=== PATIENT | male | born 1975 | race Caucasian/White ===

== ENCOUNTER 2021-04-26 10:30 | Day surgery (SDC) | payer BC, SELFPAY ==
[2021-04-26] VITALS (8 sets, daily range): BP systolic 125–178; BP diastolic 91–122; PULSE 90–114; RESP 16–18; TEMP 36.3–36.9; O2SAT 94–98; BMI 26.4; BMI 26.0
--- NOTE | 2021-04-26 10:42 | HMH.EDGENADL ---
ED Disposition Clinical Impression: Esophageal obstruction due to food impaction Disposition: Still a Patient Condition on Discharge: Fair Referrals: Chance Álvarez MD [Primary Care Provider] - - Critical Care Critical Care Time: No Attestation: On 04/26/21, the high probability of a clinically significant, sudden or life threatening deterioration of the following system(s) required my full and direct attention, intervention and personal management. The time I documented below is in addition to time spent performing reported procedures but includes the following listed in this critical care notation. Medical Decision Making - Milo Inquiry Pt receiving controlled substance: No Vital Signs: 04/26/21 10:31 04/26/21 11:12 04/26/21 11:22 Temperature 98.5 F 97.4 F L 98.2 F Temperature Source Oral Temporal Artery Scan Oral Pulse Rate 100 H Pulse Rate [Radial] 114 H 100 H Respiratory Rate 16 18 16 Blood Pressure 177/98 H Blood Pressure [Right Arm] 178/122 H 165/101 H Blood Pressure Mean [Right Arm] 140 122 Blood Pressure Source Automatic Cuff Blood Pressure Source [Right Arm] Automatic Cuff Blood Pressure Position Sitting Blood Pressure Position [Right Arm] Sitting Sitting 02 Sat by Pulse Oximetry 98 98 Oxygen Delivery Method Room Air Room Air Room Air Orders (Tests/Meds): ED MEDICATIONS Discontinued Medications Generic Name Dose Route Start Last Admin Trade Name Freq PRN Reason Stop Dose Admin Sodium Chloride 1,000 ml 04/26/21 10:52 Sodium Chloride 0.9% 1000ml Bag IV 04/26/21 10:53 BOLUS ONE ORDERS Category Date Time Status Consult to Surgeon On-Call [Consult to On-Call Gen'l Cons 04/26/21 10:49 Ordered Surgeon] [CONS] Routine BMP [Basic Metabolic Panel] Stat Lab 04/26/21 10:49 Ordered Complete Blood Count Auto Diff Stat Lab 04/26/21 10:49 Ordered Rapid PCR Covid and Flu A/B Stat Lab 04/26/21 10:53 Received - Physician Consults Physician Consulted: Shvia Time: 10:53 Reason -: Surgical Eval/Care Comment/Response: States that radiologic technology instructor is here in specially clinic today. He is going to call their to see if radiologic technology instructor will do the endoscopy and he will call back. Will be taken for EGD by Dr. Shannon. General Adult HPI - General Stated complaint: food stuck in throat Time Seen by Provider: 04/26/21 10:42 - History of Present Illness HPI narrative: Complains of a lodged food bolus in his esophagus. States that he was eating steak 2 days ago when he coughed or sneezed and can tell immediately that it got stuck. He has tried meat tenderizer, carbonated beverages, broth, water, all without relief. He has not tried to eat solid foods since that happened, only trying liquids. All liquids come back up as does saliva. He says this is happened several times over the past 10 years. He says he can normally relieve it with me tenderizer, but had to have EGD 5 years ago to remove a bolus. He says he was supposed to follow-up for esophageal dilatation but did not follow-up. - Related Data Home Medications Medication Instructions Recorded Confirmed lisinopriL [Lisinopril] 10 mg PO DAILY 04/26/21 04/26/21 Allergies Allergy/AdvReac Type Severity Reaction Status Date / Time NKDA Allergy Unknown Uncoded 04/02/17 14:29 [facility] History - Hepatitis A Screen Attestation statement:: This patient has been screened for Hepatitis A risk factors. I have reviewed the patient's past medical history: Yes ROS Obtained: Yes Systems reviewed as appropriate & no additional complaints - Constitutional Constitutional: Denies fever(s) - Gastrointestinal Gastrointestingal: Reports: as per HPI, dysphagia Physical Exam - General General appearance: alert, in no apparent distress - Head Head exam: atraumatic, normocephalic - Eye Eye exam: Present: normal appearance, EOMI - ENT ENT exam: Present: mucous membranes moist -
--- NOTE | 2021-04-26 11:06 | PC.NURSE ---
Pt is going to have a scope due to food bolus for [address] Shannon will be performing the procedure. Marianna called down and advised he would be performing the procedure. Jessica Darby went into the room to start the paperwork and get the patient ready for procedure when they arrived at bedside and went ahead and took the patient on up to pre-op.
--- NOTE | 2021-04-26 11:19 | HMH.GSHP ---
HPI HPI: Patient is a 45-year-old male who had is a prior history of reflux and esophageal foreign body/food impaction. He required upper endoscopy on 05/12/[address] Owusu. He states that he was in his usual state of health until 2 days ago on 04/24/2021 at which time he was eating steak. Subsequently he has been unable to swallow his secretions. He has tried multiple remedies at home without success. He has tried meat tenderizer, carbonated beverages, broth, water, all without relief. He has not tried to eat solid foods since that happened, only trying liquids. All liquids come back up as does saliva. He says this is happened several times over the past 10 years. He says he can normally relieve it with me tenderizer. He says he was supposed to follow-up for esophageal dilatation but did not follow-up. [facility] History I have reviewed the patient's past medical history: Yes Medical History: Reports:: Hypertension Denies:: Internal Pacemaker, Seizures *Have you ever received a pneumonia vaccine?: No *Have you received a flu vaccine this season?: No Other Surgeries: No: Pacemaker - *Social History Smoking Status: Smoker, status unknown Alcohol Intake: never *Occupational Status:: employed *Travel in the last 8 weeks: None Family Hx:: Non-contributory Review of Systems - Review of Systems Review of systems:: pertinent systems reviewed and negative unless documented below Meds Home Medications Medication Instructions Recorded Confirmed Type lisinopriL [Lisinopril] 10 mg PO DAILY 04/26/21 04/26/21 History Allergies Allergy/AdvReac Type Severity Reaction Status Date / Time NKDA Allergy Unknown Uncoded 04/02/17 14:29 Exam Vital signs and Labs for Last 24 Hours: Temp Pulse Resp BP Pulse Ox 97.4 F L 100 H 18 165/101 H 98 04/26/21 11:12 04/26/21 11:12 04/26/21 11:12 04/26/21 11:12 04/26/21 11:12 I & O for Last 24 hours: Intake & Output 04/23/21 04/24/21 04/25/21 04/26/21 11:59 11:59 11:59 11:59 Weight 192 lb - Constitutional no acute distress - *Routine HEENT Exam Head: Present: normocephalic Eye: Present: EOMI, PERRL ENT: Present: mucous membranes moist - *Routine Neck Exam Present: supple. Absent: lymphadenopathy - *Routine Respiratory Exam Present: CTA bilaterally - *Routine Cardiovascular Exam Present: RRR - *Routine Abdominal Exam Present: soft, normoactive bowel sounds. Absent: tenderness - *Routine Rectal Exam Rectal:: deferred - *Routine Genitalia Exam Genitalia:: deferred - *Routine Extremities Exam Absent: cyanosis, clubbing, edema - *Routine Skin Exam Present: warm. Absent: rash - *Routine Neurological Exam Present: alert, oriented X3 Assessment and Plan - Assessment and plan all Dx Assessment and Plan for all problems:: Plan for urgent endoscopy for apparent foreign body/food impaction
[2021-04-26 11:23] LABS: Coronavirus 19, PCR Not Detected (NotDetected); Influenza A, PCR Not Detected (NotDetected); Influenza B, PCR Not Detected (NotDetected)
--- NOTE | 2021-04-26 11:52 | P.PCN_ITS ---
- Procedure: Date: 04/26/21 Patient Date of :: 1975 Procedure Performed:: Esophagogastroduodenoscopy with biopsies Indications:: Patient is a 45-year-old male who had presented to the emergency department with symptoms of esophageal obstruction. He has a prior history of reflux and esophageal foreign body/food impaction. He required upper endoscopy on 05/12/[address] Owusu. He states that he was in his usual state of health until 2 days ago on 04/24/2021 at which time he was eating steak. Subsequently he has been unable to swallow his secretions. He has tried multiple remedies at home without success. He has tried meat tenderizer, carbonated beverages, broth, water, all without relief. He has not tried to eat solid foods since that happened, only trying liquids. All liquids come back up as does saliva. He says this is happened several times over the past 10 years. He says he can normally relieve it with me tenderizer. He says he was supposed to follow-up for esophageal dilatation but did not follow-up. Due to terms of esophageal obstruction secondary to food impaction surgical consultation was obtained. Plan was made for EGD. Performing Provider:: Hua Shannon MD Referring Provider:: Chance Álvarez MD Sedation:: MAC sedation Procedure:: Patient was taken to endoscopy. He was positioned in lateral decubitus position. Adequate intravenous sedation was achieved with anesthesia titration of propofol. Olympus endoscope was inserted via the oropharynx. There was some saliva within the distal esophagus which was suctioned free. There was evidence of some distal erosive esophagitis. There was no evidence of any food impaction at the gastroesophageal junction at this time but there was evidence of edema and some minor mucosal oozing secondary to likely recent esophageal obstruction food impaction. Gastroesophageal junction was encountered at approximately 40 cm from the incisors. Stomach was cannulated and insufflated. Retroflexion revealed no evidence of any appreciable hiatal hernia. Stomach appeared unremarkable. Pylorus was traversed. First second and third portion of the duo denum appeared unremarkable. Endoscope was withdrawn into the distal stomach and gastric antral mucosal biopsy was obtained. Endoscope was withdrawn into the distal esophagus and biopsy was obtained at the gastroesophageal junction. There was some erosive distal esophagitis and biopsy was obtained. Endoscope was readvanced and the stomach was desufflated and the endoscope was withdrawn. Findings:: Distal erosive esophagitis Evidence of recent esophageal obstruction/food impaction at the gastroesophageal junction No evidence of current obstruction Gastroesophageal junction at 40 cm from the incisors Recommendations:: Recommend full liquid diet for least 24 hours then soft diet. Recommend proton pump inhibitors. I would advocate a follow-up endoscopy in several weeks electively for possible dilatation. Complications:: None immediately apparent Estimated blood obtained (mL): 2
--- NOTE | 2021-04-26 13:17 | P.PN_ITS ---
[facility] Anesthesia Checklist - Patient Identification Patient Identification: Arm Band, Verbal (Name & ) - Structural Data Admitted From: Home Planned Operative Procedure/s: EGD Consent for Planned Operative Procedure(s) Verified: Yes Verified Documents: Surgical Consent - NPO Status Verified Time NPO: 00:00 - Airway Assessment C-Spine Mobility Assessed: Yes TMJ Mobility Assessed: Yes Dentition: Good Dentition - Neurological Assessment Level of Consciousness: Awake, Alert, Appropriate - Anesthesia Plan Anesthesia Risk discussed: Yes Anesthesia Plan: Patient unable to respond/answer ASA Class: III Anesthesia Type: General [facility] History I have reviewed the patient's past medical history: Yes Medical History: Reports:: Hypertension Denies:: Internal Pacemaker, Seizures *Have you ever received a pneumonia vaccine?: No *Have you received a flu vaccine this season?: No Anesthesia experience/problems:: none Other Surgeries: No: Pacemaker - *Social History Smoking Status: Smoker, status unknown Alcohol Intake: never Substance Use Type: denies use *Occupational Status:: employed *Travel in the last 8 weeks: None Family Hx:: Non-contributory
== END 2021-04-26 12:33 | disposition home or self-care (01) ==
LOC: ER 11:07 → SDC 11:42
PROVIDERS: Emergency Provider Emergency Medicine; PCP Internal Medicine Adolescent Medicine; Visit Provider Surgery
PROC: 0DJ08ZZ Inspection of Upper Intestinal Tract, Via Natural or Artificial Opening Endoscopic (ICD-10-PCS; CPT 43235; principal; 2021-04-26 11:10)
DX: K22.2 Esophageal obstruction (principal); T18.128A Food in esophagus causing other injury, initial encounter; K20.80 Other esophagitis without bleeding; K29.30 Chronic superficial gastritis without bleeding; K22.89 Other specified disease of esophagus; K22.10 Ulcer of esophagus without bleeding; Z87.19 Personal history of other diseases of the digestive system; I10 Essential (primary) hypertension; Z79.899 Other long term (current) drug therapy
CPT/HCPCS: 43235; 99283; C9803; U0003; U0005

== ENCOUNTER 2021-12-21 08:34 | Emergency (ER) | payer BC, SELFPAY ==
[2021-12-21 09:10] VITALS: BP 135/90; PULSE 98; RESP 21; TEMP 38.6; O2SAT 98; BMI 24.7
--- NOTE | 2021-12-21 09:37 | EXP.UTC ---
Discharge Plan Disposition Patient Disposition: Home, Self-Care Condition: Good Prescriptions Prescriptions: New ondansetron 4 mg tablet,disintegrating 4 mg PO Q8H PRN (Reason: Nausea) Qty: 20 0RF No Action lisinopril 10 MG tablet 10 mg PO DAILY Referrals Follow up/Referrals: Provider,Referral, MD [Primary Care Provider] - See instructions Activity Restrictions/Add. Instructions Additional Instructions/Restrictions: Drink extra fluids with and between meals. If you have difficulty drinking, try very small amounts of water or suck on ice chips. ? Avoid fruit juices, as these do not replace minerals and can actually increase diarrhea. ? Children and adults can use sports drinks to replenish electrolytes. Younger children and infants should use products formulated for children, like oral rehydration solutions. ? Eat food in small amounts and let your stomach recover. ? Get lots of rest. You may feel tired or weak. ? No greasy or fried foods for the next 24-48 hours BRAT diet Bananas Rice Apples and Stafford ? Make sure to drink plenty of liquids ? Return if needed ? Straight to ER if any life threatening symptoms ? Zofran as prescribed ? You was given an outpatient order for diarrhea panel, please collect specimen and bring back to outpatient lab then call back to the [facility] or follow up with family doctor for results ? Follow up with family doctor in the next 48-72 hours if no improvement or any worsening of symptoms Clinical Impressions Clinical Impression: Viral syndrome, Diarrhea Stand Alone Forms Stand Alone Forms: Work/School Release Instructions Patient Instructions: Diarrhea, DI for Viral Syndrome, DI for Nausea -- Adult Discharge ED Provider: Rosalinda Pryor [facility] [place] General Stated complaint: cough, congestion Mode of Arrival: Ambulatory Source of Information: Patient Limitations: No Limitations Time Seen by Provider: 12/21/21 09:37 Description of Symptoms (Recalled from Triage Doc. by RN): PATIENT C/O FEVER, COUGH, DIARRHEA, AND NAUSEA X 2 DAYS HEENT Symptoms (Recalled from RN notes): No Resp Symptoms (Recalled from RN notes): Yes Skin Symptoms (Recalled from RN notes): No MS Symptoms (Recalled from RN notes): No Functional Status (Recalled from RN notes): WNL History of Present Illness Provider Complaint: Patient states that he is currently on antibiotic for infected hair States that since then he has been having Nausea, diarrhea, cough, nasal congestion and fever States that he feels like he has the flu States that today he was feeling achy all over and over all not feeling well States that he has still been drinking trying to keep himself hydrated but was worried he may have COVID Related Data Home Medications Medication Instructions Recorded Confirmed lisinopril 10 mg tablet 10 mg PO DAILY Hypertension 04/26/21 12/21/21 Previous Rx's Medication Instructions Recorded ondansetron 4 mg disintegrating 4 mg PO Q8H PRN Nausea #20 tabs 12/21/21 tablet Allergies Allergy/AdvReac Type Severity Reaction Status Date / Time No Known Allergies Allergy Verified 12/21/21 09:21 Worker's Comp Is this a Worker's Comp case?: No PFSH PFSH Medical History (Updated 12/21/21 @ 10:06 by Rosalinda Pryor APRN) Asthma Hypertension Surgical History (Updated 12/21/21 @ 09:20 by Loren Weber RN) History of hand surgery Social History (Updated 12/21/21 @ 09:21 by Loren Weber RN) Smoking Status: Smoker, status unknown alcohol intake: never substance use type: denies use current occupational status: employed Travel in the last 8 weeks: None caffeine: Yes ROS Obtained: Yes All systems reviewed & no additional complaints except as documented and Yes Systems reviewed as appropriate & no additional complaints except as documented ENT Ears, Nose, Mouth, and Throat: Reports system
[2021-12-21 09:58] LABS: UTC Influenza A Antigen Negative (Negative)
[2021-12-21 09:59] LABS: UTC Influenza B Antigen Negative (Negative)
[2021-12-21 10:10] VITALS: BP 135/90; PULSE 98; RESP 21; TEMP 38.6; O2SAT 98
== END 2021-12-21 10:18 | disposition home or self-care (01) ==
PROVIDERS: Emergency Provider Nurse Practitioner
DX: B34.9 Viral infection, unspecified (principal); R19.7 Diarrhea, unspecified
CPT/HCPCS: 87804; 99212; C9803; G0463; U0003; U0005